=== PATIENT | male | born 1985 | race Hispanic/Latino ===

== ENCOUNTER 2021-04-07 21:08 | Emergency (ER) | payer BC, OTHER ==
[~2021-04-07] VITALS: Ht 182.9 cm; Wt 117.9 kg
[2021-04-07] MEDS ORDERED: IBUPROFEN 600 MG TAB PO STA (21:12)
[2021-04-07] MEDS ORDERED: IBUPROFEN 600 MG TAB ONE (21:24)
== END 2021-04-07 22:04 | disposition home or self-care (01) ==
LOC: ER 21:13
DX: S76.011A Strain of muscle, fascia and tendon of right hip, initial encounter (principal); M16.0 Bilateral primary osteoarthritis of hip; W17.89XA Other fall from one level to another, initial encounter; Y93.89 Activity, other specified; Y92.89 Other specified places as the place of occurrence of the external cause
CPT/HCPCS: 99283